=== PATIENT | male | born 1940 | race Caucasian/White ===

== ENCOUNTER → 2018-06-27 13:02 | Outpatient (CLI) | payer MEDICARE, SELFPAY ==
--- NOTE | 2018-06-27 13:15 | CA_ITS ---
PROCEDURE: 2-D M-mode and color Doppler study INDICATIONS FOR THE TEST: Chest pain COPD Heart Murmur Tobacco Smoking Palpitations Fatigue+ Syncope Edema Hypertension+Diabetes Mellitus Rheumatic Fever SOB+PURDY Obesity Hyperlipidemia+ Family History HD Additional History CABG, PACER, AFIB, CAD PATIENT INFORMATION HEIGHT: 69 WEIGHT:171 GENDER: Male B/P:122/84 2-D/M-MODE INTERPRETATION: 2-D MEASUREMENTS OBSERVED VALUES IN CMS Right Ventricular Dimension (RVDd) 3.8 Interventricular Septum (Thickness)(IVsd) 1.5 Left Ventricular Internal Dimensions(LVIDd) 4.3 Left Ventricular Posterior Wall (Thickness)(LVPWd) 0.9 Aortic Root 3.7 Aortic Cusp Separation 1.9 Left Atrial Dimensions (LAD) 4.7 2D 1. Left atrium is mildly enlarged, left ventricle is normal size, mild concentric left ventricular hypertrophy, visually estimated ejection fraction of 55% with no regional wall motion abnormality. 2. The right atrium and right ventricle are mildly enlarged with normal contractility, there is a pacemaker lead seen in right atrium and right ventricle. 3. The aortic valve is thickened and calcified leaflet continue to display mobility. 4. The mitral and tricuspid valve leaflets are minimally thickened. 5. The pulmonic valve is poorly visualized. 6. No significant pericardial effusion noted. DOPPLER INTERROGATION: Doppler interrogation of the aortic, mitral and tricuspid valvular presence of mild mitral and tricuspid regurgitation, tricuspid regurgitation jet velocity is inadequate for calculation of the right ventricular systolic pressure, grade 1 diastolic dysfunction seen without tissue Doppler evidence of raised left atrial pressure. CONCLUSION: 1. Mildly enlarged left atrium, normal left ventricular size, mild concentric left ventricular hypertrophy, visually estimated ejection fraction 55% with no regional wall motion abnormality, there is abnormal septal motion. Grade 1 diastolic dysfunction seen without tissue Doppler evidence of raised left atrial pressure. 2. Mild aortic, mild mitral and tricuspid regurgitation 3. No significant pericardial effusion noted.
[2018-06-27 13:35] LABS: Basophils # 0.1 K/mm3 (0-0.2); Basophils % 0.6 % (0.1-2.0); Eosinophils # 0.1 K/mm3 (0.0-0.4); Eosinophils % 1.5 % (0.1-12.0); Hematocrit 47.2 % (42.0-52.0); Hemoglobin 16.2 g/dL (14.1-18.0); Lymphocytes # 1.8 K/mm3 (0.7-4.5); Lymphocytes % 20.9 % (10-50); Mean Corpuscular HGB Conc 34.3 g/dL (31.8-35.4); Mean Corpuscular Hemoglobin 31.2 pg (27.0-31.2); Mean Platelet Volume 6.6 fl (7.4-10.4); Monocytes # 0.7 K/mm3 (0.1-1.0); Monocytes % 8.1 % (1.7-9.3); Neutrophils # 5.9 K/mm3 (1.8-7.8); Neutrophils % 68.9 % (37.0-80.0); Platelet Count 264 K/mm3 (142-424); Red Blood Count 5.19 M/mm3 (4.60-6.20); Red Cell Distribution Width 13.4 % (11.5-17.5); White Blood Count 8.5 K/mm3 (4.8-10.8)
[2018-06-27 13:48] LABS: Anion Gap 10.9 mEq/L (5-15); Blood Urea Nitrogen 17 mg/dL (7-18); Calcium 9.4 mg/dL (8.5-10.1); Carbon Dioxide 32 mmol/L (21.0-32.0); Chloride 97 mmol/L (98-107); Creatinine,Serum 0.93 mg/dL (0.70-1.30); Estimated Glomerular Filt Rate 78 ml/min (>60); Free T4 (Free Thyroxine) 0.98 ng/dl (0.76-1.46); GFR (African American) 95 ML/MIN (>60); Glucose 100 mg/dL (74-106); Potassium 4.9 mmoL/L (3.5-5.1); Sodium 135 mmol/L (136-145); Thyroid Stimulating Hormone 2.05 uIU/ml (0.358-3.740)
== END ==
PROVIDERS: Visit Provider Internal Medicine
DX: R06.02 Shortness of breath (principal); I25.10 Atherosclerotic heart disease of native coronary artery without angina pectoris; Z79.899 Other long term (current) drug therapy
CPT/HCPCS: 36415; 80048; 83880; 84439; 84443; 85025; 93306

== ENCOUNTER → 2018-08-15 06:11 | Outpatient (CLI) | payer MEDICARE, SELFPAY ==
--- NOTE | 2018-08-15 06:21 | NM_ITS ---
CARDIOLITE SPECT MYOCARDIAL PERFUSION LEXISCAN, REST AND STRESS: History: Coronary artery disease, bypass surgery pacemaker hypertension, tobacco use family history shortness of breath and fatigue Procedure: Patient received a 0.4 mg of intravenous Lexiscan, resting heart rate was 65 bpm resting blood pressure 144/80, with Lexiscan maximum heart rate achieved was 72 bpm which is less than 85% of the maximum predicted heart rate and a blood pressure was 144/93. With Lexiscan patient complained of malaise, no chest pain Electrocardiogram: Resting electrocardiogram showed sinus rhythm with Lexiscan less than 1.[address] segment depression noted from the baseline EKG. The EKG portion of the Lexiscan Myoview is nondiagnostic. Cardiac stress and resting SPECT images: Cardiac stress and resting SPECT images were obtained using technetium 99 Myoview 31.4 mCi stress and 10.8 mCi at rest. Gated SPECT further analysis of segmental wall motion and calculation of the ejection fraction also done. Cardiac stress and resting SPECT images show a mild fixed defect in the inferior wall with normal contractility gated SPECT is likely secondary to soft tissue attenuation, no reversible ischemia seen. Computer derived ejection fraction 50% with no regional wall motion abnormality, right ventricle is mildly enlarged with normal contractility. Conclusion: 1. The EKG portion of the Lexiscan Myoview is nondiagnostic. 2.No scintigraphic evidence of reversible ischemia seen. Computer derived ejection fraction is 58% with no regional wall motion abnormality, right ventricle is mildly enlarged with normal contractility. 3. Normal Lexiscan Myoview study.
--- NOTE | 2018-08-15 07:38 | HMH.ITSHM ---
Current Home Medications as stated by this patient Melanie Choi or players club representative. []BISOPROLOL DIGOXIN SPIRONOLACTONE XARELTO CLONAZEPAM FLUOXETINE PANTOPRAZOLE JIM
[2018-08-15 10:55] LABS: Anion Gap 10.2 mEq/L (5-15); Blood Urea Nitrogen 16 mg/dL (7-18); Calcium 9.7 mg/dL (8.5-10.1); Carbon Dioxide 35 mmol/L (21.0-32.0); Chloride 99 mmol/L (98-107); Creatinine,Serum 1.06 mg/dL (0.70-1.30); Estimated Glomerular Filt Rate 67 ml/min (>60); GFR (African American) 82 ML/MIN (>60); Glucose 109 mg/dL (74-106); Potassium 5.2 mmoL/L (3.5-5.1); Sodium 139 mmol/L (136-145)
== END ==
PROVIDERS: Physician Assistant; PCP Family Medicine; Visit Provider Urology
DX: I25.10 Atherosclerotic heart disease of native coronary artery without angina pectoris (principal); R06.02 Shortness of breath; R53.83 Other fatigue; I11.9 Hypertensive heart disease without heart failure; I34.0 Nonrheumatic mitral (valve) insufficiency; I48.2 Chronic atrial fibrillation; R06.09 Other forms of dyspnea; Z79.01 Long term (current) use of anticoagulants; Z95.0 Presence of cardiac pacemaker; Z95.1 Presence of aortocoronary bypass graft; G47.33 Obstructive sleep apnea (adult) (pediatric)
CPT/HCPCS: 36415; 78452; 80048; 93017; A9502; G0399; J2785

== ENCOUNTER → 2019-08-27 14:56 | Outpatient (CLI) | payer MEDICARE, SELFPAY ==
--- NOTE | 2019-08-27 15:02 | CA_ITS ---
APPROVED REPORT EXAM: Comprehensive 2D, Doppler, and color-flow Echocardiogram [employer] Manager: Danyelle Jiménez RDCS Ht: 5 ft 9 in Wt: 179lbs BSA: 1.97 BP: 91/55 mmHg Indications: PAF,CAD,PP,CABG 2D Dimensions LVOT 2.16 cm (M/F) 1.5-2.5 M-Mode Dimensions RVDd 3.01 cm (0.9-2.6) LVDd 5.62 cm (3.5-5.7) LVDs 4.37 cm (3.5-5.7) IVSd 0.61 cm (0.6-1.1) PWd 0.93 cm (0.6-1.1) EF (Teich) 44.30% FS 22.20% EDV (Teich) 154.90 mL ESV (Teich) 86.30 mL LV Diastology E/A Ratio 0.83 Mitral Valve MV A Velocity 44.00 (40-130 cm/s) Left Ventricle Left atrium is mildly enlarged, left ventricle is normal size, mild concentric left ventricular hypertrophy, visually estimated ejection fraction 55% with no regional wall motion abnormality, grade 1 diastolic dysfunction seen without tissue Doppler evidence of raise left atrial pressure, there is abnormal septal motion. Right Ventricle Right atrium and right ventricular normal size and contractility, pacemaker lead seen right atrium and right ventricle. Aortic Valve Aortic valve is minimally thickened and fibrosed, there is no aortic stenosis or aortic insufficiency. Mitral Valve Mitral valve is minimally thickened, there is mild mitral regurgitation. Tricuspid Valve Tricuspid valve is grossly normal, there is mild tricuspid regurgitation, calculated right ventricular systolic pressure is 40 mmHg. Pulmonic Valve Pulmonic valve is poorly visualized. Great Vessels Aortic root is normal size. Pericardium No significant pericardial effusion noted. Conclusion 1. Mildly enlarged left atrium, normal left ventricular size, mild concentric left ventricular hypertrophy, visually estimated ejection fraction 55% with no regional wall motion abnormality, grade 1 diastolic dysfunction seen without tissue Doppler evidence of raise left atrial pressure. Abnormal septal motion. 2. Mild mitral and tricuspid regurgitation. Calculated right ventricular systolic pressure is 40 mmHg. 3. No significant pericardial effusion noted. Electronically signed by : Gary Larson, 08/27/2019 23:30:11
== END ==
PROVIDERS: PCP Family Medicine; Visit Provider Physician Assistant
DX: R06.02 Shortness of breath (principal); I25.10 Atherosclerotic heart disease of native coronary artery without angina pectoris; Z79.899 Other long term (current) drug therapy
CPT/HCPCS: 36415; 80048; 80061; 80076; 83880; 84439; 84443; 85025; 93306

== ENCOUNTER → 2019-08-27 15:36 | Outpatient (CLI) | payer MEDICARE, SELFPAY ==
[2019-08-27 16:18] LABS: Basophils % 0.4 % (0.1-2.0); Eosinophils # 0.1 K/mm3 (0.0-0.4); Eosinophils % 1.3 % (0.1-12.0); Hematocrit 43.6 % (42.0-52.0); Lymphocytes # 1.6 K/mm3 (0.7-4.5); Lymphocytes % 15.6 % (10-50); Mean Corpuscular HGB Conc 34.4 g/dL (31.8-35.4); Mean Corpuscular Volume 90.2 fl (80-94); Mean Platelet Volume 7.6 fl (7.4-10.4); Monocytes # 0.6 K/mm3 (0.1-1.0); Monocytes % 5.9 % (1.7-9.3); Neutrophils # 7.7 K/mm3 (1.8-7.8); Neutrophils % 76.8 % (37.0-80.0); Platelet Count 247 K/mm3 (142-424); Red Blood Count 4.83 M/mm3 (4.60-6.20); Red Cell Distribution Width 13.9 % (11.5-17.5)
[2019-08-27 17:55] LABS: Chloride 97 mmol/L (98-107); Sodium 139 mmol/L (136-145)
[2019-08-27 17:56] LABS: Potassium 4.2 mmoL/L (3.5-5.1)
[2019-08-27 17:58] LABS: Alanine Aminotransferase 22 U/L (12-78); Albumin Level 4.5 g/dl (3.5-5.0); Alkaline Phosphatase 83 U/L (38-126); Anion Gap 13.2 mEq/L (5-15); Aspartate Amino Transferase 30 U/L (17-59); Bilirubin,Indirect 0.8 mg/dL (0.0-0.9); Bilirubin,Total 0.8 mg/dl (0.2-1.3); Bilirubin,Unconjugated 0.7 mg/dL (0.0-1.1); Blood Urea Nitrogen 16 mg/dl (9-20); Calcium 9.5 mg/dl (8.4-10.2); Carbon Dioxide 33 mmol/L (22.0-30.0); Cholesterol 111 mg/dl (140-200); Estimated Glomerular Filt Rate 93 ml/min (>60); GFR (African American) 113 ML/MIN (>60); Glucose 97 mg/dl (74-100); Total Protein,Serum 7.3 g/dl (6.3-8.2); Triglycerides 129 mg/dl (30-150); VLDL Cholesterol 26 mg/dL (0-40)
[2019-08-27 17:59] LABS: Chol/HDL Ratio 2.7 (1-3.5); HDL Cholesterol 41 mg/dl (40-60)
[2019-08-27 18:08] LABS: NT Pro Brain Natriuretic Pep. 323 pg/mL (0-450)
[2019-08-27 18:09] LABS: Direct LDL Cholesterol 48.63 mg/dL (100-129)
[2019-08-27 18:29] LABS: Thyroid Stimulating Hormone 2.18 uIU/mL (0.465-4.68)
[2019-08-27 19:39] LABS: Free T4 (Free Thyroxine) 0.94 ng/dl (0.78-2.19)
== END ==
PROVIDERS: Physician Assistant; Visit Provider Internal Medicine
DX: Z79.899 Other long term (current) drug therapy (principal); R06.02 Shortness of breath
CPT/HCPCS: 36415; 80048; 80061; 80076; 83880; 84439; 84443; 85025

== ENCOUNTER → 2019-09-13 06:15 | Outpatient (CLI) | payer MEDICARE, SELFPAY ==
--- NOTE | 2019-09-13 06:24 | NM_ITS ---
APPROVED REPORT Exam: Nuclear Stress Test Indication: short of breath..fatigue Patient Location: Outpatient Stress Tech: Wendy Powellnkson NM Tech:Eri Cowart JASMEET RT(R)(N) Ht: 5 ft 9 in Wt: 176 lbs HR: 67 bpm BP: 125/77 mmHg BSA: 1.96 m2 BMI: 25.9 History: short of breath..fatigue Procedure: Patient received a 0.4 mg of intravenous Lexiscan, resting heart rate 67 bpm, resting blood pressure 125/77 mmHg, with Lexiscan maximum heart rate achived was 65 bpm which is Less than 85 % of the maximum predicted heart rate and blood pressure was 113/60 mmHg. With Lexiscan, patient denied any complaint of chest pain. Electrocardiogram Resting electrocardiogram showed sinus rhythm nonspecific ST-T changes, with Lexiscan there is less than 1.[address] segment depression noted from the baseline EKG. The EKG portion of the Lexiscan Myoview is nondiagnostic. Cardiac Stress and Resting SPECT Images: Cardiac Stress and Resting SPECT images were obtained using technetium 99m Myoview 29.5 mCi stress and 10.47 mCi at rest. Gated SPECT with analysis of segmental wall motion and calculation of the ejection fraction also done. Cardiac stress and resting SPECT images show a mild fixed defect in a small area involving the anteroseptal area this likely represents nontransmural myocardial scarring without significant ro-infarct ischemia. Computer derived ejection fraction 52% with no obvious regional wall motion abnormality, right ventricle is normal size and contractility. Conclusion: 1. The EKG portion of the Lexiscan Myoview is nondiagnostic. 2. Scintigraphic evidence of small area of nontransmural myocardial scarring involving the anteroseptal wall. There is no significant ro-infarct ischemia. Computer derived ejection fraction 52% with no regional wall motion abnormality, right ventricle is normal size and contractility. 3. Abnormal Lexiscan Myoview study. Electronically signed by : Gary Larson, 09/13/2019 14:31:05
--- NOTE | 2019-09-13 06:24 | CA_ITS ---
APPROVED REPORT Exam: Pharmacologic Technologist: Yvonne Patton, Ht: 5 ft 9 in Wt: 176 lbs BSA: 1.96 m2 HR: 67 bpm BP: 123/77 mmHg Rhythm: NSR,ANTERIOR T WAVE ABNORMALITIES Medical History Medical History: CAD s/p CABG, CAD s/p stent, HTN, Hyperlipidemia Medications: Atorvastatin,,,,, Lasix,,,,, ClonAZEPAM,,,,, XaRELTO,,,,, SpirOLACTONE,,,,, Digoxin,,,,, BisOPROLOL,,,,, Fluxetine,,,,, Allergies: No known drug allergies Cardiac Risk Factors: HTN, Hyperlipidemia, FHX of CAD Stress Test Details Test: LEXISCAN HR Resting HR: 59 bpm Max Heart Rate (APMHR): 140 bpm Max HR Achieved: 82 bpm Target HR (85% APMHR): 119 bpm % of APMHR: 58 Recovery HR: 66 bpm BP Resting BP: 123.0/77.0 mmHg Max BP: 123.0/77.0 mmHg Recovery BP: 119.0/61.0 mmHg ECG Resting ECG: NSR,ANTERIOR T WAVE ABNORMALITIES Maximum ST Deviation: 4 mm Clinical Exercise duration: 04:03 min Highest Stage Achieved: Exercise capacity: 1.0 METs Stress ECG Conclusion DURING INFUSION OF LEXISCAN PATIENT HAD MILD SOA,NAUSEA AND MALAISE. NO CHEST PAIN. OCCASIONAL V.PACED BEAT. OCCASIONAL PVC OR JUNCTIONAL BEAT. EXAGGERATION OF BASELINE T WAVE ABNORMALITIES. UNREMARKABLE LEXISCAN STRESS. MYOVIEW IMAGES REPORTED SEPARATELY. Test Summary REST . . . . . . . Sitting REST . . . . . . . Sitting REST 02:31 . . 59 . 123/ 77 . . Stage 1 . . . . . . . Cardiolite injected Stage 1 01:00 . . 63 . . . . Stage 2 01:00 . . 63 . 107/ 55 . . Stage 3 01:00 . . 72 . 113/ 60 . . Stage 4 01:00 . . 69 . 109/ 73 . . Stage 4 01:03 . . 69 . 109/ 73 . Stop exercise at 04:03 RECOVERY 01:00 . . 66 . 119/ 61 . . RECOVERY 02:00 . . 82 . 119/ 61 . . RECOVERY 03:00 . . 61 . 119/ 61 . . RECOVERY 03:29 . . 67 . 122/ 66 . . Electronically signed by : Gary Larson, 09/13/2019 11:15:18
--- NOTE | 2019-09-13 13:09 | HMH.ITSHM ---
Current Home Medications as stated by this patient Melanie Choi or enrollment representative. [] oxybatynin loperaMIDE LORRAMIDE ASA
== END ==
PROVIDERS: PCP Family Medicine; Visit Provider Physician Assistant
DX: E78.5 Hyperlipidemia, unspecified (principal); I11.9 Hypertensive heart disease without heart failure; I25.10 Atherosclerotic heart disease of native coronary artery without angina pectoris; I48.91 Unspecified atrial fibrillation; R06.00 Dyspnea, unspecified; Z79.01 Long term (current) use of anticoagulants; Z95.0 Presence of cardiac pacemaker; Z95.1 Presence of aortocoronary bypass graft
CPT/HCPCS: 78452; 93017; A9502; J2785

== ENCOUNTER 2021-01-19 08:08 | Day surgery (SDC) | payer MEDICARE, SELFPAY ==
--- NOTE | 2021-01-19 | IR_ITS ---
APPROVED REPORT Patient Location: Outpatient Drying Supervisor: JASMEET Dia RT (R) PROCEDURES Pocket Revision Removal of old Pacemaker Implant of Permanent Pacemaker INDICATION Normal Battery Depletion Informed consent was obtained prior to the procedure. COMPLICATIONS None Estimated Blood Loss: Less than 10 mls TECHNIQUE 1% lidocaine with epinephrine used to anesthetize the left anterior aspect of the chest. Scalpel was used to make the initial cutaneous incision and then used to dissect down to the existing pacemaker generator. The generator was removed from the existing pocket. Digital manipulation was required along with intermittent usage of scalpel in order to revise the pocket. The leads were removed from the old generator. The new generator was screwed to the existing leads and secured into place. Electronic interrogation proved acceptable thresholds and voltage within the lead. Antibiotics were used to flush the pocket and the pacemaker was secured using 3-0 silk into the newly revised pocket. Monocryl was used to close the subcutaneous tissue and then brian were placed on the cutaneous area in order to approximate the incision. Patient was transferred to the postop holding area in stable condition. INTERROGATION Explanted Generator Model number: Oscar, K173 Explanted Generator Serial number: [id number] Implanted Generator Model number: ACCOLADE YUMIKO GLEASON, L311 Implanted Generator Serial number: [id number] Atrial lead model number: 4136 Atrial lead serial number: [id number] P-wave: 6.0mV Impedence: 0.7V@0.4ms Threshold: 550 ohms Right Ventricular lead model number: 4137 Right Ventricular lead serial number: [id number] R-wave: 25.0mV Impedence: 0.9V@0.4ms Threshold: 600 ohms Pacing Parameters: Mode: DDDR RYTHMIQ: AAIR with VVI Backup Base/Max Track: 65 ppm/130 ppm No diaphragmatic stimulation at 10 volts. IMPRESSION Successful Pocket Revision Successful Removal of old Pacemaker Successful Implant of Permanent Pacemaker PLAN 1. Follow up office visit, post op wound care Electronically signed by : Tamir Alvarez MD 01/20/2021 11:18:14
[2021-01-19 08:20] VITALS: BMI 26.4
[2021-01-19 08:42] VITALS: BP 150/97; PULSE 69; PULSE 73; RESP 18; TEMP 36.6; O2SAT 98
[2021-01-19 13:32] VITALS: BP 108/54; PULSE 74; RESP 16; TEMP 37; O2SAT 98
[2021-01-19 13:45] VITALS: BP 95/46; PULSE 69; RESP 18; O2SAT 98
[2021-01-19 14:00] VITALS: BP 97/51; PULSE 65; RESP 18; O2SAT 98
[2021-01-19 14:15] VITALS: BP 102/61; PULSE 67; RESP 18; O2SAT 98
[2021-01-19 14:45] VITALS: BP 105/69; PULSE 66; RESP 18; O2SAT 98
== END 2021-01-19 15:08 | disposition home or self-care (01) ==
LOC: CATHLAB 08:10
PROVIDERS: PCP Internal Medicine; Visit Provider Internal Medicine
DX: Z45.010 Encounter for checking and testing of cardiac pacemaker pulse generator [battery] (principal); I48.0 Paroxysmal atrial fibrillation; I34.0 Nonrheumatic mitral (valve) insufficiency; E11.9 Type 2 diabetes mellitus without complications; I10 Essential (primary) hypertension; Z79.899 Other long term (current) drug therapy
CPT/HCPCS: 33228; 99152; C1785